=== PATIENT | female | born 1945 | race Two or more races ===

== ENCOUNTER 2017-06-08 10:22 | Emergency (ER) | payer MEDICARE, OTHER ==
[~2017-06-08] VITALS: Ht 139.7 cm; Wt 103.4 kg
[2017-06-08 10:51] VITALS: BP 160/48
[2017-06-08 11:46] LABS: BASOPHILS % (AUTO) 1.3 % (0.0-2.0); EOSINOPHILS % (AUTO) 5.3 % (0.0-3.0); LYMPHOCYTES % (AUTO) 32.4 % (20.0-45.0); MEAN CORPUSCULAR HEMOGLOBIN 26.8 PG (27.0-31.0); MEAN CORPUSCULAR HGB CONC 31.6 G/DL (32.0-36.0); MEAN CORPUSCULAR VOLUME 85 FL (80-99); MEAN PLATELET VOLUME 5.7 FL (6.5-10.1); MONOCYTES % (AUTO) 4.9 % (1.0-10.0); NEUTROPHILS % (AUTO) 56.1 % (45.0-75.0); PLATELET COUNT 313 K/UL (150-450); RED BLOOD COUNT 4.83 M/UL (4.20-5.40); RED CELL DISTRIBUTION WIDTH 12.1 % (11.6-14.8); WHITE BLOOD COUNT 8.8 K/UL (4.8-10.8)
[2017-06-08 11:52] LABS: INR 0.9 (0.9-1.1); PROTHROMBIN TIME 9.6 SEC (9.30-11.50)
[2017-06-08 11:56] LABS: ANION GAP 4 mmol/L (5-15); CALCIUM 9.1 MG/DL (8.5-10.1); CARBON DIOXIDE 32 MMOL/L (21-32); CHLORIDE 101 MMOL/L (98-107); CREATININE 0.6 MG/DL (0.55-1.30); POTASSIUM 4.6 MMOL/L (3.5-5.1); SODIUM 137 MMOL/L (136-145)
[2017-06-08 11:57] LABS: APPEARANCE,URINE CLEAR; KETONES,URINE NEGATIVE (NEGATIVE); LEUKOCYTE ESTERASE ,URINE NEGATIVE (NEGATIVE); NITRITE,URINE NEGATIVE (NEGATIVE); PH,URINE 7 (4.5-8.0); PROTEIN,URINE NEGATIVE (NEGATIVE); UROBILINOGEN,URINE NORMAL MG/DL (0.0-1.0)
[2017-06-08 11:59] LABS: ALANINE AMINOTRANSFERASE 26 U/L (12-78); ALBUMIN/GLOBULIN RATIO 1.1 (1.0-2.7); ASPARTATE AMINO TRANSFERASE 15 U/L (15-37); LIPASE 134 U/L (73-393)
[2017-06-08 12:16] VITALS: BP 162/50
[2017-06-08 12:44] VITALS: BP 153/52
[2017-06-08 13:32] VITALS: BP 164/60
[2017-06-08] MEDS ORDERED: LORATADINE10 M2 PO (14:17)
[2017-06-08] MEDS ORDERED: ASPIR-LOW81 MG ORAL (14:17)
[2017-06-08] MEDS ORDERED: LIPITOR80 MG ORAL (14:17)
[2017-06-08] MEDS ORDERED: ACTOS15 MG ORAL (14:17)
[2017-06-08] MEDS ORDERED: METFORMIN HCL1000 M1 ORAL (14:17)
[2017-06-08] MEDS ORDERED: ETODOLAC400 MG PO (14:17)
[2017-06-08] MEDS ORDERED: HUMALOG KW200 UNIT/1 SQ (14:17)
[2017-06-08] MEDS ORDERED: VITAMIN D400 INTLU ORAL (14:17)
[2017-06-08] MEDS ORDERED: ATENOLOL100 MG ORAL (14:17)
[2017-06-08] MEDS ORDERED: GEMFIBROZIL600 MG ORAL (14:17)
[2017-06-08] MEDS ORDERED: OYSCO-500500 M1 PO (14:17)
[2017-06-08] MEDS ORDERED: NORVASC5 MG ORAL (14:17)
[2017-06-08] MEDS ORDERED: LOSARTAN-HCTZ1 EACH ORAL (14:17)
[2017-06-08] MEDS ORDERED: STOOL SOFTENER250 MG PO (14:17)
[2017-06-08] MEDS ORDERED: FERROUS SULFAT325 MG ORAL (14:17)
[2017-06-08] MEDS ORDERED: Aspirin Baby 81mg ORAL ONE (14:45)
[2017-06-08 15:32] VITALS: BP 160/74
--- NOTE | 2017-06-08 15:53 | Emergency Room Report ---
History of Present Illness General Chief Complaint: Abdominal Pain Source: Patient Present Illness HPI The patient is a 71-year-old female presented after increased upper abdominal pain. Patient reports having increased pain for the past 3 days. Patient gradual onset of symptoms. She reports having achey pain which did not radiate. Patient was noted to have a gradual onset of symptoms. She denied any nausea or vomiting. She reports having prior history of hypertension. She denies any fever. The pain was associated with any difficulty with urination. Allergies: Coded Allergies: No Known Allergies (Unverified , 06/08/17) Patient History Past Medical History: see triage record Last Menstrual Period: na Reviewed Nursing Documentation: PMH: Agreed, PSxH: Agreed Nursing Documentation-PMH Past Medical History: No History, Except For Hx Hypertension: Yes Hx Diabetes: Yes Review of Systems All Other Systems: negative except mentioned in HPI Physical Exam Vital Signs Date Time Temp Pulse Resp B/P (MAP) Pulse Ox O2 Delivery O2 Flow Rate FiO2 06/08/17 10:33 97.3 70 18 149/78 95 Room Air Sp02 EP Interpretation: reviewed, normal General Appearance: normal inspection, well appearing, no apparent distress, alert, GCS 15, non-toxic Head: atraumatic ENT: normal ENT inspection, hearing grossly normal, normal voice Neck: normal inspection, full range of motion, supple, no bony tend Respiratory: normal inspection, lungs clear, normal breath sounds, no respiratory distress, no retraction, no wheezing Cardiovascular #1: regular rate, rhythm, no edema Gastrointestinal: normal inspection, normal bowel sounds, non tender, soft, no guarding, no hernia Genitourinary: no CVA tenderness Musculoskeletal: normal inspection, back normal, normal range of motion Neurologic: normal inspection, alert, oriented x3, responsive, bacteriologist dairy III-XII nml as tested, speech normal Psychiatric: normal inspection, judgement/insight normal, mood/affect normal Skin: normal inspection, normal color, no rash Medical Decision Making Diagnostic Impression: Primary Impression: Abdominal pain Additional Impression: Elevated troponin level ER Course Patient presented for abdominal pain. Differential diagnoses included ischemic bowel, appendicitis, perforated viscus, abdominal aortic aneurysm, inferior myocardial infarction, viral gastroenteritis. Because of complexity of patient' s case laboratory testing and imaging studies were ordered.cT imaging of the abdomen pelvis read by radiology showed no acuteevidence of gallbladder disease or liver disease there is no evident renal stone.I EKG interpreted by me showed sinus rhythm with a rate of 69 without acute T wave changes. Patient was noted to have some slight enlargement of the T waves on EKG. Laboratory testing showed elevation of the patient's troponin out of reference range. The patient was advised of the laboratory findings including the elevated troponin. The patient was advised risk benefits alternatives of leaving AGAINST MEDICAL ADVICE and he indicated understanding and all questions are answered patient still continued want to leave and signed AGAINST MEDICAL ADVICE. Despite risks including but not limited to disability and worsening of current lifestyle.The patient is advised to return at anytime. EKG Diagnostic Results Rate: normal Rhythm: NSR ST Segments: other - peaked t waves Last Vital Signs Date Time Temp Pulse Resp B/P (MAP) Pulse Ox O2 Delivery O2 Flow Rate FiO2 06/08/17 15:32 71 18 160/74 98 Room Air 06/08/17 15:29 97.3 Status: improved Disposition: AGAINST MEDICAL ADVICE Condition: Stable Referrals: RIGO HARPER (PCP) Nickolas Trevizo Jun 08, 2017 15:53
--- NOTE | 2017-06-10 17:18 | Cardiology Report ---
APPROVED REPORT EKG Measurement Heart [id number] Normal sinus rhythm Cannot rule out Anterior infarct, age undetermined Abnormal ECG
--- NOTE | 2017-06-11 08:43 | Diagnostic Imaging Report ---
Indication: Right-sided abdominal pain x3 days Technique: CT of the abdomen and pelvis utilizing automated exposure control with intravenous contrast. Venous scanning performed. CT dose: Total DLP 1004 mGycm; CTDI vol 20 mGy Comparison: None Findings: Oral contrast was not administered. Question punctate calcific granuloma in the right lower lobe. Heart size within normal limits. Aortic valvular calcifications noted. No pericardial effusion. Liver is normal in contour. No focal liver lesion is appreciated on this single phase study. Hepatic veins and portal veins appear patent. The gallbladder is unremarkable in appearance. The spleen, adrenal glands and pancreas are unremarkable in appearance. The kidneys enhance symmetrically. There is no evidence of definite urinary tract stone. No hydronephrosis or perinephric stranding bilaterally. There is apparent thickening of the bladder wall which is likely related to underdistention. The uterus appears mildly atrophic. No adnexal mass is appreciated. There is no bowel obstruction. There is no free intraperitoneal air. There is no focal bowel thickening however evaluation is limited without oral contrast. The appendix is normal. There is a tiny fat-containing umbilical hernia. The abdominal aorta is normal in caliber with scattered atherosclerotic calcifications. There are multilevel degenerative changes of the thoracolumbar spine. No acute osseous abnormality is seen. No gross abdominal or pelvic lymphadenopathy is appreciated. Impression: Apparent thickening of the bladder is likely related to underdistention. Correlate with urinalysis to exclude cystitis. Otherwise, no evidence of acute intra-abdominal pathology. Additional incidental findings as above. The CT scanner at [facility] is accredited by the [employer] and the scans are performed using protocols designed to limit radiation exposure to as low as reasonably achievable to attain images of sufficient resolution adequate for diagnostic evaluation.
== END 2017-06-08 15:29 | disposition left against medical advice (07) ==
LOC: EMR 12:10 → EDBEDREQ 13:58 → CANBEDREQ 15:08 → EMR 15:29
DX: R10.10 Upper abdominal pain, unspecified (principal); R79.89 Other specified abnormal findings of blood chemistry; I10 Essential (primary) hypertension; E11.9 Type 2 diabetes mellitus without complications
CPT/HCPCS: 36415; 74177; 80053; 81003; 83690; 84484; 85025; 85610; 85730; 93005; 96374; 99284; Q9967; S0028